=== PATIENT | male | born 1955 | race Caucasian/White ===

== ENCOUNTER 2020-07-29 11:44 | Inpatient (IN) | payer MEDICAID ==
[~2020-07-29] VITALS: Ht 172.7 cm; Wt 86.2 kg
[2020-07-29] VITALS (12 sets, daily range): BP systolic 89–129; BP diastolic 47–82; BMI 28.9
[2020-07-29 12:30] LABS: BASOPHILS 0.1 % (0-2); EOSINOPHILS 0 % (0-7); HEMATOCRIT 45.5 % (42.0-54.0); HEMOGLOBIN 15.3 g/dL (13.5-17.5); IMMATURE GRANULOCYTES 0.7 % (0-5); LYMPHOCYTE ABS# 0.68 10x3/uL (1.32-3.57); LYMPHOCYTES 4.1 % (15-50); MCH 30.5 pg (26.0-34.0); MCHC 33.6 g/dL (31.0-37.0); MCV 90.6 fL (80.0-100.0); MEAN PLATELET VOLUME 10.8 fL (7.4-10.4); MONOCYTES 6.3 % (2-11); NEUTROPHIL ABS# 14.62 10x3/uL (1.78-5.38); NEUTROPHILS 88.8 % (40-80); PLATELET COUNT 210 10x3/uL (130-400); RBC 5.02 10x6/uL (4.20-6.10); WBC 16.5 10x3/uL (4.8-10.8)
[2020-07-29 12:33] LABS: APTT 32.4 SECONDS (22.8-39.4); INR 1.27 (0.85-1.17); PROTIME 14.7 SECONDS (11.6-15.0)
[2020-07-29 12:35] LABS: CALC OSMOLALITY 266 mosm/kg (275-300); CALCIUM 8.9 mg/dL (8.5-10.1); CARBON DIOXIDE 26.8 mmol/L (21.0-32.0); CHLORIDE - SERUM 98 mmol/L (98-107); CREATININE - SERUM 1.6 mg/dL (0.6-1.3); GLUCOSE 99 mg/dL (74-106); POTASSIUM - SERUM 3.9 mmol/L (3.5-5.1); SODIUM 132 mmol/L (136-145); UREA NITROGEN 18 mg/dL (7-18); eGFR NON AFRICAN AMERICAN 47 mL/min (90-120)
[2020-07-29 12:49] LABS: ALBUMIN 3.6 g/dL (3.4-5.0); ALKALINE PHOSPHATASE 78 U/L (30-120); ALT (SGPT) 22 U/L (10-68); BILIRUBIN - TOTAL 2.64 mg/dL (0.2-1.3); CKMB 0.1 U/L (0.0-3.6); CREATINE KINASE 36 UL (21-232); MAGNESIUM - SERUM 2.1 mg/dL (1.8-2.4); PROTEIN - SERUM 7.7 g/dL (6.4-8.2); TROPONIN-I < 0.017 ng/mL (0.000-0.060)
[2020-07-29 13:09] LABS: C-REACTIVE PROTEIN 11.1 mg/dL (0.0-0.9)
[2020-07-29 16:40] LABS: ERYTHROCYTE SEDIMENTATION RATE 4 mm/hr (0-20)
[2020-07-29 17:02] LABS: BILIRUBIN NEGATIVE (NEGATIVE); KETONE NEGATIVE (NEGATIVE); NITRITE POSITIVE (NEGATIVE); UROBILINOGEN NORMAL mg/dL (< 2)
[2020-07-29 17:04] LABS: BACTERIA MODERATE HPF (NONE SEEN); WHITE CELLS - URINE 25-50 HPF (0-1)
[2020-07-29 18:57] LABS: CKMB 0.8 U/L (0.0-3.6); CREATINE KINASE 31 UL (21-232)
[2020-07-29 18:58] LABS: TROPONIN-I < 0.017 ng/mL (0.000-0.060)
--- NOTE | 2020-07-29 19:30 | NUR ---
INITIAL ROUNDS AND ASSESSMENT COMPLETED. WAS VISITING BUT HAS NOW LEFT. PT ALERT/ORIENTED. PROVIDED WITH A SANWHICH TRAY AND DRINK. SR PER TELEMETRY. NONLABORED RESPIRATIONS ON ROOM AIR. IV TO LEFT HAND SALINE LOCKED. DENIES PAIN OR DISCOMFORT AT THIS TIME. CALL LIGHT IN REACH.
--- NOTE | 2020-07-29 23:16 | NUR ---
BEDTIME MEDS GIVEN. IV ABT INFUSED. WATCHING TV.
[2020-07-30 02:30] LABS: CKMB 0.9 U/L (0.0-3.6); CREATINE KINASE 36 UL (21-232)
[2020-07-30 02:50] LABS: TROPONIN-I < 0.017 ng/mL (0.000-0.060)
[2020-07-30 04:31] VITALS: BP 145/79
[2020-07-30 06:34] LABS: BASOPHILS 0.1 % (0-2); EOSINOPHILS 0 % (0-7); HEMATOCRIT 45.1 % (42.0-54.0); HEMOGLOBIN 15.1 g/dL (13.5-17.5); IMMATURE GRANULOCYTES 0.4 % (0-5); LYMPHOCYTE ABS# 0.86 10x3/uL (1.32-3.57); LYMPHOCYTES 4.7 % (15-50); MCH 30.3 pg (26.0-34.0); MCHC 33.5 g/dL (31.0-37.0); MCV 90.6 fL (80.0-100.0); MEAN PLATELET VOLUME 11.3 fL (7.4-10.4); MONOCYTES 4.9 % (2-11); NEUTROPHIL ABS# 16.46 10x3/uL (1.78-5.38); NEUTROPHILS 89.9 % (40-80); PLATELET COUNT 207 10x3/uL (130-400); RBC 4.98 10x6/uL (4.20-6.10); RDW 13.2 % (11.5-14.5); WBC 18.3 10x3/uL (4.8-10.8)
[2020-07-30 06:59] LABS: ANION GAP 11.3 mmol/L (8-16); BILIRUBIN - TOTAL 0.71 mg/dL (0.2-1.3); CALCIUM 8.6 mg/dL (8.5-10.1); CARBON DIOXIDE 24.8 mmol/L (21.0-32.0); CREATININE - SERUM 1.5 mg/dL (0.6-1.3); POTASSIUM - SERUM 4.1 mmol/L (3.5-5.1); PROTEIN - SERUM 6.8 g/dL (6.4-8.2)
[2020-07-30 07:20] LABS: CKMB 1.9 U/L (0.0-3.6); CREATINE KINASE 43 UL (21-232)
[2020-07-30 07:23] LABS: TROPONIN-I < 0.017 ng/mL (0.000-0.060)
--- NOTE | 2020-07-30 07:58 | NUR ---
PT AWAKE AND ORIENTED, LYING IN BED WATCHING T/V. TOLERATED MEDICATIONS IWHTOUT COMPLICATIONS. ANSWERED ALL QUESTIONS TO THE BEST OF MY ABILITY. CL IN REACH, SRX2.
[2020-07-30 09:37] VITALS: BP 146/80
[2020-07-30 09:46] VITALS: BMI 28.8
[2020-07-30 10:18] VITALS: Ht 172.7 cm; Wt 86.2 kg
--- NOTE | 2020-07-30 12:02 | NUR ---
I have reviewed this patient and I concur with the Shift Assessment completed by the Licensed Practical Nurse today this shift.
--- NOTE | 2020-07-30 12:04 | NUR ---
PT ALERT AND OIRENTED, BOTH AND PT ASK FREQUENT QUESTIONS, ANSWERED TO THE BEST OF MY ABILITY. PT C/O ACID REFLUX. CL IN REACH, SRX2, NO FAMILY AT BEDSIDE AT THIS TIME.
[2020-07-30 17:08] VITALS: BP 147/86
--- NOTE | 2020-07-30 17:27 | NUR ---
PT ALERT AND ORIENTED, AT BEDSIDE, LYING INBED WATCHING T/V. NO COMLAINTS OR CONCERNS AT THIS ITME. CL IN REACH, SRX2.
[2020-07-30 20:20] VITALS: BP 158/90
--- NOTE | 2020-07-30 22:48 | NUR ---
INITIAL ROUNDS COMPLETED AT 1915 H RS. PT DENIED ANY DISCOMFORT. ASSESSMENT COMPLETED AT 2009 HR. PT ALERT AND ORIENTED TO PERSON, PLACE AND TIMNE. FIGUEROA. PALPABLE PERIPHERAL PULSES. VSS. IV TO L HAND SL. LUNGS ESSENTIALLY CTA. ABD SOFT WITH ACTINVE BS NOTED. PT AMBULATED X4 AROUND UNIT (1000 FT). AT 2019 HRS. GAIT EVEN AND STEADY. PT CURRENTLY RESTING WITH EYES CLOSED. RESP EVEN AND REGULAR. SR UP X1, CALL LIGHT WITHIN REACH.
[2020-07-31 00:13] VITALS: BP 156/86
--- NOTE | 2020-07-31 00:28 | NUR ---
PT RESTING WITH EYES CLOSED. RESP EVEN AND REGULAR. CALL LIGHT WITHIN REACH.
--- NOTE | 2020-07-31 02:11 | NUR ---
PT RESTING WITH EYES CLOSED. RESP EVEN AND REGULAR. CALL LIGHT WITHIN REACH.
--- NOTE | 2020-07-31 03:10 | NUR ---
PT PULLED IV OUT WITH CATHETER INTACT. NEW IV STARTED #20 TO R WRIST WITH ATTEMPT X1. PT TOLERATED ACTIVITY WELL.
[2020-07-31 03:34] VITALS: BP 140/78
--- NOTE | 2020-07-31 03:47 | NUR ---
PT RESTING WITH EYES CLOSED. RESP EVEN AND REGULAR. CALL LIGHT WITHIN REACH.
[2020-07-31 05:55] LABS: BASOPHILS 0.1 % (0-2); EOSINOPHILS 0.1 % (0-7); HEMATOCRIT 42.8 % (42.0-54.0); HEMOGLOBIN 14.3 g/dL (13.5-17.5); IMMATURE GRANULOCYTES 0.3 % (0-5); LYMPHOCYTE ABS# 1.83 10x3/uL (1.32-3.57); LYMPHOCYTES 11.5 % (15-50); MCHC 33.4 g/dL (31.0-37.0); MCV 89.9 fL (80.0-100.0); MEAN PLATELET VOLUME 11.3 fL (7.4-10.4); MONOCYTES 5.7 % (2-11); NEUTROPHILS 82.3 % (40-80); PLATELET COUNT 223 10x3/uL (130-400); RBC 4.76 10x6/uL (4.20-6.10); RDW 13.1 % (11.5-14.5); WBC 15.9 10x3/uL (4.8-10.8)
[2020-07-31 06:39] LABS: ANION GAP 9.3 mmol/L (8-16); BILIRUBIN - TOTAL 0.31 mg/dL (0.2-1.3); CALCIUM 8.4 mg/dL (8.5-10.1); CARBON DIOXIDE 25.2 mmol/L (21.0-32.0); CREATININE - SERUM 1.4 mg/dL (0.6-1.3); POTASSIUM - SERUM 3.5 mmol/L (3.5-5.1); PROTEIN - SERUM 6.6 g/dL (6.4-8.2)
--- NOTE | 2020-07-31 06:46 | NUR ---
VSS THROUGHOUT NIGHT. SR PER CM. PT RESTED WELL DURING SHIFT. NEEDS MET; WILL CONTINUE TO MONITOR.
[2020-07-31 09:28] VITALS: BP 168/93
--- NOTE | 2020-07-31 09:56 | NUR ---
PT AWAKE AND ORIENTED, LYING IN BED WATCHING T/V. NO COMPLAINTS OR CONCERNS AT THIS TIME. ANSWERED ALL QUESTIONS TO THE BEST OF MY ABILITY. NO FAMILY AT BEDSIDE AT THIS TIME. DISCONTINUED TELE PER WARP DYEING VAT TENDER ORDER. CL IN REACH, SRX2. TOOK ALL MEDICATIONS WITHOUT COMPLICATIONS NOTED OR REPORTED.
--- NOTE | 2020-07-31 10:38 | EC ---
PATIENT:LINCOLN PÉREZ DATE OF SERVICE: 07/29/20 SEX: M MEDICAL RECORD: [id number] DATE OF : [birth year] LOCATION:D. D.211 AGE OF PATIENT: 64 ADMISSION DATE: 07/29/20 REFERRING PHYSICIAN: INTERPRETING PHYSICIAN: JUDI GRANDE MD ECHOCARDIOGRAM REPORT ECHO CHARGES 4 ECHO COMPLETE Date: 07/29/20 CLINICAL DIAGNOSIS: NEW ONSET CHF, CARDIOMEGALY ECHOCARDIOGRAPHIC MEASUREMENTS (adult normal given) AC root (d.<3.7cm) 3.9 cm LV Septum d (<1.2 cm> 1.2 cm Valve Excursion 2.3 cm LV Septum (systole) 1.6 cm Left Atria (s.<4.0cm> 4.6 cm LVPW d(<1.2cm) 1.0 cm RV (d.<2.3cm) 3.4 cm LVPW (sytole) 1.1 cm LV diastole(<5.6CM) 4.6 cm MV E-F(>70mm/sec) cm LV systole 3.0 cm LVOT Diameter 1.8 cm MV exc.(>10mm) cm Est.ejection fraction (50-75%) 55 % DOPPLER: LVIT cm/sec A 60 cm/sec E 49 cm/sec LA cm/sec RVSP 29 mmHg LVOT 99 cm/sec AOP1/2T m/s Asc. Ao 131 cm/sec RVOT 58 cm/sec RA 5.3 cm/sec PA 51 cm/sec AV Gradient Peak 6 mmHg AV Mean 3 mmHg AV Area 2.0 cm MV Gradient Peak 1 mmHg MV Mean 0.6 mmHg MV Area cm COMMENTS: [employer] Consultant: Margarita NICHOLSON Dock Operator: 2 Dr. Rodriguez TAPE# Pericardial Effusion DATE OF SERVICE: CLINICAL INDICATION: CHF. INTERPRETATION: Normal left ventricular chamber size and contractile function, ejection fraction 55% to 60%. FINDINGS: Left atrial chamber is mildly dilated. Right atrium and right ventricular chamber size and function appears normal. Aortic valve appears normal. No aortic regurgitation/stenosis. Mitral valve appears normal. Trace ECHOCARDIOGRAM REPORT [id number] LINCOLN PÉREZ mitral regurgitation. Tricuspid valve appears normal. Trace tricuspid regurgitation. Pulmonic valve appears normal. Trace pulmonic insufficiency. No pericardial effusion visualized. IMPRESSION: Normal left ventricular chamber size and contractile function, ejection fraction 55% to 60%. TRANSINT:[id number] Voice Confirmation ID: [id number] DOCUMENT ID: [id number] JUDI GRANDE MD at 1038 CC: [id number] DICTATION DATE: 07/30/20 1217 ELECTROLYTIC DE SCALER: 07/30/20 1523 ADM IN [facility] [address] [place] [address]
--- NOTE | 2020-07-31 10:47 | NUR ---
I have reviewed this patient and I concur with the Shift Assessment completed by the Licensed Practical Nurse today this shift.
[2020-07-31 16:32] VITALS: BP 152/78
--- NOTE | 2020-07-31 18:29 | NUR ---
PT ALERT AND OIRENTED, WALKING AROUND THE UNIT. WEARING APPROPRIATE MASK. PT IS ANXIOUS TO GO HOME TOMORROW. NO COMPLAINTS OR CONCENRS AT THIS TIME. CL IN REACH, SRX2.
[2020-07-31 20:07] VITALS: BP 150/88
--- NOTE | 2020-07-31 20:20 | NUR ---
INITIAL ROUNDS COMPLETED AT 1915 HRS. PT DENIED ANY DISCOMFORT. ASSESSMENT COMPLETED AT 1925 HRS. ALERT AND ORIENTED TO PERSON, PLACE AND TIME. FIGUEROA. PALPABLE PERIPHERAL PULSES. LUNGS CTA. IV TO R WRIST SL. CALL LIGHT WITHIN REACH.
--- NOTE | 2020-07-31 22:11 | NUR ---
RESTORIL 15MG PO GIVEN FOR C/O INSOMNIA.
--- NOTE | 2020-08-01 00:37 | NUR ---
PT RESTING WITH EYES CLOSED. RESP EVEN AND REGULAR. CALL LIGHT WITHIN REACH.
--- NOTE | 2020-08-01 02:09 | NUR ---
PT RESTING WITH EYES CLOSED. RESP EVEN AND REGULAR. CALL LIGHT WITHIN REACH.
[2020-08-01 03:41] VITALS: BP 149/88
--- NOTE | 2020-08-01 04:36 | NUR ---
VSS. PT DENIES ANY DISCOMFORT. CALL LIGHT WITHIN REACH.
[2020-08-01 05:31] LABS: BASOPHILS 0.1 % (0-2); EOSINOPHILS 0.7 % (0-7); HEMATOCRIT 43.6 % (42.0-54.0); HEMOGLOBIN 14.7 g/dL (13.5-17.5); IMMATURE GRANULOCYTES 0.4 % (0-5); LYMPHOCYTE ABS# 1.93 10x3/uL (1.32-3.57); LYMPHOCYTES 22.6 % (15-50); MCH 30.3 pg (26.0-34.0); MCHC 33.7 g/dL (31.0-37.0); MCV 89.9 fL (80.0-100.0); MEAN PLATELET VOLUME 11.2 fL (7.4-10.4); MONOCYTES 8.2 % (2-11); NEUTROPHIL ABS# 5.82 10x3/uL (1.78-5.38); PLATELET COUNT 236 10x3/uL (130-400); RBC 4.85 10x6/uL (4.20-6.10); RDW 13.2 % (11.5-14.5)
[2020-08-01 05:39] LABS: WBC 8.6 10x3/uL (4.8-10.8)
--- NOTE | 2020-08-01 05:51 | NUR ---
VSS THROUGHOUT NIGHT. PT RESTED WELL AFTER RESTORIL ADMINISTRATION. NEEDS MET; WILL CONTINUE TO MONITOR.
[2020-08-01 05:57] LABS: ALBUMIN 3.1 g/dL (3.4-5.0); BILIRUBIN - TOTAL 0.46 mg/dL (0.2-1.3); CALCIUM 8.8 mg/dL (8.5-10.1); CARBON DIOXIDE 26.8 mmol/L (21.0-32.0); CREATININE - SERUM 1.3 mg/dL (0.6-1.3); POTASSIUM - SERUM 3.8 mmol/L (3.5-5.1); PROTEIN - SERUM 6.7 g/dL (6.4-8.2)
--- NOTE | 2020-08-01 07:53 | NUR ---
PT AWAKE AND ALERT, AM MEDS GIVEN PER EMAR. PT RR EVEN NON LABORED. PT DENIES ANY PAIN OR NEEDS. EDUCATION GIVEN REGARDING INCENTIVE SPIROMETER. PT STATES UNDERSTANDING. CLWR.
[2020-08-01 08:00] VITALS: BP 167/93
--- NOTE | 2020-08-01 10:04 | NUR ---
PT UP IN RESTROOM AT THIS TIME. AMBULATING WELL, DENIES ANY NEEDS. CLWR.
[2020-08-01] MEDS ORDERED: LEXAPRO10 MG PO (10:09)
[2020-08-01] MEDS ORDERED: HCTZ25 MG PO (10:10)
[2020-08-01] MEDS ORDERED: BACTRIM DS TAB1 EAC1 PO (10:11)
--- NOTE | 2020-08-01 10:18 | NUR ---
IV TO RIGHT HAND D/C AT THIS TIME, DRESSING APPLIED, CATHETER INTACT. TENDERNESS AT SITE NOTED. PT STATES HE HAS CONTACTED TRANSPORTATION HOME AND THEY WILL BE ON THE WAY SHORTLY. INSTRUCTED PT NURSE WILL COMPLETE D/C PAPERWORK WHEN AVAILABLE. NO NEEDS VOICED. CLWR.
--- NOTE | 2020-08-01 11:30 | NUR ---
D/C INSTRUCTIONS GIVEN TO PT AT THIS TIME AND APPROPIATE SIGNUTURES OBTAINED. PT DENIES ANY QUESTIONS.
--- NOTE | 2020-08-01 11:41 | NUR ---
PT WHEELED TO PRIVATE VEHICLE WITH ALL BELONGINGS BY PCT AT THIS TIME. NO DISTRESS NOTED ON DEPARTURE.
== END 2020-08-01 11:42 | disposition home or self-care (01) | DRG 872 ==
LOC: D.ER 11:44 → D.M2 15:04
PROVIDERS: Emergency Medicine; ADMIT Family Medicine; ATTEND Family Medicine
DX: A41.9 Sepsis, unspecified organism (principal); E87.1 Hypo-osmolality and hyponatremia; N17.9 Acute kidney failure, unspecified; N39.0 Urinary tract infection, site not specified; I95.9 Hypotension, unspecified; T50.8X5A Adverse effect of diagnostic agents, initial encounter; R07.9 Chest pain, unspecified; I10 Essential (primary) hypertension; K21.9 Gastro-esophageal reflux disease without esophagitis; F41.8 Other specified anxiety disorders; F43.0 Acute stress reaction